=== PATIENT | male | born 1935 | race Caucasian/White ===

== ENCOUNTER → 2017-01-10 | Outpatient (CLI) | payer MEDICARE, OTHER ==
--- NOTE | 2017-01-10 12:07 | RADIOLOGY REPORT (SQ) ---
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 TECHNIQUE: Sagittal and Axial imaging includes T1, T2, STIR and gradient echo sequences. Coronal T2/ HASTE imaging. LIMITATIONS: None. FINDINGS: VISUALIZED UPPER ABDOMEN: Limited evaluation. No acute or suspicious findings suggested. SEGMENTATION: No transitional anatomy. The lowest well-developed disc space is labeled L5-S1. ALIGNMENT: About 25% anterolisthesis of L3 over L4 is present from advanced L3-4 facet arthropathy VERTEBRAE: Intact. BONE MARROW: Fatty vertebral body endplate changes at L1-2, and L3-4. Mixed edematous and sclerotic vertebral body endplate changes at L4-5. DISC SIGNAL: Diffuse decreased T2 weighted intervertebral disc signal. High-grade disc space loss of height at L4-5 and L5-S1. POSTERIOR ELEMENTS: Generally intact. No pars defect evident. HARDWARE: None in the spine. CORD AND CONUS: Normal in size and signal intensity. Conus at the T12-L1 level. SOFT TISSUES: No aortic aneurysm seen. No bulky retroperitoneal adenopathy or mass. No paraspinal mas s or fluid. T10-11: Mild posterior disc bulging. No central stenosis. High-grade bilateral foraminal narrowing from facet hypertrophy. T11-12: Minimal posterior disc bulging. No significant central or foraminal encroachment. T12-L1: Mild diffuse posterior disc bulging. No central stenosis. Mild bilateral foraminal narrowi ng from facet hypertrophy. L1-L2: Left paracentral disc herniation flattens the thecal sac in the left lateral recess containing the proximal L2 nerve root. This is best shown on sagittal image 8 and 9, and axial T2 images 5-7. Elsewhere at L1-2, there is borderline central canal narrowing. Mild right, high-grade left foramina l narrowing. Partial effacement of the fat around the exiting left L1 nerve root. Asymmetric bilate ral facet hypertrophy left greater than right. L2-L3: Borderline central canal narrowing results from broad diffuse posterior disc bulge and moderat e bilateral facet and ligament hypertrophy. Mild to moderate bilateral inferior foraminal narrowing without exiting L2 nerve root impingement. L3-L4: High-grade central canal stenosis results from grade 1 anterolisthesis of L3 over L4, broad di ffuse posterior disc bulging, and bulky bilateral facet and ligament hypertrophy. Effacement of the CSF around the lumbar nerve roots best shown on axial T2 image 17 and sagittal image 8. Elsewhere at L3-4, there is moderate right and moderate to high-grade left foraminal narrowing with p artial effacement of the fat around the exiting left L3 nerve root L4-L5: Broad diffuse posterior disc bulge and bony spurring, bulky bilateral facet and ligament hyper trophy causes high-grade central canal stenosis, with effacement of the CSF around the lumbar nerve r oots. This is best shown on axial image 22 and sagittal image 8. Elsewhere at L4-5, high-grade right and moderate left foraminal narrowing is present. There is effac ement of fat around the exiting right L4 nerve root. L5-S1: Mild diffuse posterior disc bulge and bony spurring is present with mild facet and ligament hy pertrophy. No central stenosis. Mild bilateral foraminal narrowing without exiting L5 nerve root im pingement. SACRUM: Visualized upper sacrum intact. OTHER: No other significant findings. IMPRESSION: Significant multilevel central and foraminal stenosis. TECHNICAL DOCUMENTATION: JOB ID: [id number] [employer]- All Rights Reserved
== END ==
LOC: RAD 09:38
PROVIDERS: ATTEND Pain Medicine Interventional Pain Medicine
DX: M54.16 Radiculopathy, lumbar region (principal)
CPT/HCPCS: 72148